=== PATIENT | female | born 1950 | race Caucasian/White ===

== ENCOUNTER 2016-06-18 13:15 | Emergency (ER) | payer OTHER ==
[~2016-06-18] VITALS: Ht 162.6 cm; Wt 68.0 kg
[2016-06-18 13:27] VITALS: BP 180/82
--- NOTE | 2016-06-18 13:45 | ED EYE COMPLAINT ---
History of Present Illness General Chief Complaint: Eye Problems Stated Complaint: POKED IN LFT EYE WITH TREE BRANCH Source: patient Exam Limitations: no limitations Vital Signs & Intake/Output Vital Signs & Intake/Output Vital Signs Date Time Temp Pulse Resp B/P B/P Pulse O2 O2 Flow FiO2 Mean Ox Delivery Rate 06/18 1327 97.9 103 18 180/82 97 Room Air Room Air Allergies Coded Allergies: MDX - Erythromycin (ERYTHROMYCIN) (VOMITING 05/23/11) Reconcile Medications Polytrim (Polytrim Eye Drops) 10,000 UNIT-1 MG/ML DROPS 1 GTT OPH Q6 CORNEAL ABRASION Triage Note: TRIAGE:l 66 Y/O FEMALE PRESENTS C/O TREE BRANCH STRUCK HER IN THE EYE 30 MINUTES PRIOR TO ARRIVAL. NO ACTIVE BLEEDING NOTED. NO VISION DISTURBANCES NOTED. Triage Nurses Notes Reviewed? yes Onset: Just prior to arrival Duration: hour(s): (2) Timing: no prior history Injury Environment: home Severity: moderate Severity Numbers: 5 No Modifying Factors: none Left Eye Associated Symptoms: fb sensation HPI: Patient is a 66-year-old female who doesn't wear glasses or contacts presenting to the emergency department chief complaint of getting poked in the left eye with a tree branch to his prior to arrival. Pain is currently moderate. Mild foreign body sensation. She presents been tearing slightly but nothing excessive. Denies any visual changes. Denies any other injury. No numbness or tingling. Denies any photophobia. Nothing seems to make it better or worse. (DALIA CLEMENTE) Past History Travel History Traveled to [place] past 21 day No Medical History Any Pertinent Medical History? 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 No (DALIA CLEMENTE) Review of Systems Review of Systems Constitutional: Reports: no symptoms. Comments Review of systems: See HPI, All other systems negative. Constitutional, no chills fever or weight loss HEENT: No visual changes no sore throat no congestion Cardiovascular: No chest pain ,palpitation , orthopnea or ankle swelling Skin, no jaundice no rashes Respiratory: No dyspnea cough sputum or hemoptysis GI: No nausea no vomiting Muscle skeletal: no back pain, no neck pain, Neurologic: No numbness no confusion no headache Psych: No stress anxiety or depression,. Heme/endocrine: No bruising no bleeding no polyuria or polydipsia Immunology: No splenectomy or history of AIDS, up-to-date with immunizations. (DALIA CLEMENTE) Physical Exam General Appearance: well developed/nourished, no apparent distress, alert General Inspection: subconjunctival hem Eyelid: normal inspection Conjunctiva/Sclera: injected Cornea: abrasion, fluorescein dye uptake EOM: intact Pupil: normal accommodation, normal pupil, PERRL Anterior Chamber: normal inspection Eye Left 1) large 2 cm corneal abrasion at the 4 oclock position of left eye. also subconjunctival injection in same area. no hyphema. General Inspection: normal inspection (DALIA CLEMENTE) Progress Differential Diagnosis: corneal abrasion Plan of Care: Patient will use Polytrim drops, warm compresses and anti-inflammatories. She' ll follow up with ophthalmology next week or return for worsening symptoms or concerns. Patient nontoxic. (DALIA CLEMENTE) Departure Departure Time of Disposition: 1405 Disposition: HOME OR SELF CARE Condition: Stable Clinical Impression Primary Impression: Corneal abrasion Qualifiers: Encounter type: initial encounter Laterality: left Qualified Code: S05.02XA - Injury of conjunctiva and corneal abrasion without foreign body, left eye, initial encounter Referrals: YEFRI JOSE MD (PCP/Family) SADIA NELSON,CAILIN Lundberg Additional Instructions: Follow-up with Dr. MCCULLOUGH, ophthalmology, a call first thing Monday to make an appointment. Use [id number] ibuprofen as directed. Use Polytrim drops as directed and apply warm compresses over affected eye. Return for worsening symptoms or concerns. Departure Forms: Customer Survey General Discharge Information Prescriptions: Current Visit Scripts Polytrim (Polytrim Eye Drops) 1 GTT OPH Q6 #10 ML (DALIA CLEMENTE) PA/[employer] CONSULTANT Co-Sign Statement Statement: ED Attending supervision documentation- x I saw and evaluated the patient. I have also reviewed all the pertinent lab results and diagnostic results. I agree with the findings and the plan of care as documented in the PA's/[employer] EBS CONSULTANT's documentation. [] I have reviewed the ED Record and agree with the PA's/[employer]AC[employer] EBS CONSULTANT's documentation. [] Additions or exceptions (if any) to the PAs/[employer] E[employer] CONSULTANT's note and plan are summarized below: [] (SHREE NELSON,CONRAD) Procedures Additional Procedures Additional Procedures: flouro eye stain Progress: Fluorescein uptake noted in the 4 o'clock position on the left knee, there is a 2 cm corneal abrasion noted in this area along with a subconjunctival hemorrhage. No foreign bodies appreciated (CAMERON MCCAIN,DALIA)
[2016-06-18] MEDS ORDERED: POLYTRIM EYE DR10 ML OPH (14:09)
== END 2016-06-18 14:33 ==
LOC: ERH 13:15
DX: S05.02XA Injury of conjunctiva and corneal abrasion without foreign body, left eye, initial encounter (principal); W22.8XXA Striking against or struck by other objects, initial encounter; Y92.9 Unspecified place or not applicable; Y93.9 Activity, unspecified